=== PATIENT | female | born 1955 | race American Indian/Alaskan Native ===

== ENCOUNTER 2022-04-05 06:54 | Emergency (ER) | payer MEDICARE, SELFPAY ==
[2022-04-05 07:15] VITALS: BP 187/108; PULSE 101; RESP 20; TEMP 36.6; O2SAT 97; BMI 29.9
--- NOTE | 2022-04-05 07:27 | ED.PSYCH ---
HPI - Psych General Time Seen by Provider: 07:28 Date Seen: 04/05/22 Chief Complaint: Unspecified Complaint, Adult Stated Complaint: Mental Health issues Time Seen by Provider: 04/05/22 07:27 Source: patient, RN notes reviewed and old records reviewed Mode of arrival: ambulatory Limitations: no limitations History of Present Illness HPI Narrative: Alba is a very pleasant 66-year-old female with history of depression who comes to the emergency room because ?she did not know where to go?. Alba lives at [facility] and last week there was an incident where the residence were angry with each other and there was some door slamming. Yesterday Alba had a meeting and received a letter that her behavior was not acceptable and she got a warning. She is not a victim. However, she was so angry about this that she did not know where to go or what to do and thus she came to the emergency room. She denies suicidal ideation/homicidal ideation and states that now that she is on Prozac she no longer thinks about suicide. She denies alcohol or drug use. She is wanting to talk to somebody. Alba does not have a counselor but does have a point of contact at the [facility], [facility], who she sees for free. Candice is an advanced social services director. They have a good rapport. Unfortunately, Candice is not available as she is on vacation right now. Alba denies any suicidal gestures including taking pills, cutting, alcohol use. Related Data Home Medications Medication Instructions Recorded Confirmed fluoxetine 20 mg tablet mg 04/05/22 lisinopril 20 mg tablet mg 04/05/22 Allergies Allergy/AdvReac Type Severity Reaction Status Date / Time No Known Drug Allergies Allergy Verified 04/05/22 07:19 Review of Systems Narrative: No recent illnesses. No hallucinations. [facility] Medical History Anxiety Depression HTN (hypertension) Personality disorder PTSD (post-traumatic stress disorder) Social History Smoking Status: Never smoker Do you use any of these nicotine containing products: None How often do you have a drink containing alcohol: never AUDIT-C Alcohol total score: 0 Non-prescribed substance use: denies use Exam Narrative: Exam Narrative: Patient is alert and oriented. Nontoxic in appearance. Makes good eye contact. Appropriate speech. Cooperative. Heart with regular rate and rhythm and lungs are clear. Moving all extremities. Const: Vital Signs, click to edit/add: Vital Signs - 24 hr 04/05/22 07:15 Temperature 97.8 F Pulse Rate [Left P ulse Oximeter] 101 H Respiratory Rate 20 Blood Pressure [Le ft Upper Arm] 187/108 H Pulse Oximetry 97 Course Course Hospital Course: At this time patient is nontoxic in appearance, is not suicidal nor under the influence of chemicals. Alba will talk to our [employer] news broadcaster. Perhaps that person can help provide Alba with some self taught calming exercises. Vital Signs Vital signs: Initial Vital Signs Temperature 97.8 F 04/05/22 07:15 Temperature Source Temporal Artery Scan 04/05/22 07:15 Pulse Rate 101 H 04/05/22 07:15 Respiratory Rate 20 04/05/22 07:15 Blood Pressure 187/108 H 04/05/22 07:15 Blood Pressure Mean 134 04/05/22 07:15 Blood Pressure Position Sitting 04/05/22 07:15 Pulse Oximetry 97 04/05/22 07:15 Vital Signs Temperature 97.8 F 04/05/22 07:15 Pulse Rate 101 H 04/05/22 07:15 Respiratory Rate 20 04/05/22 07:15 Blood Pressure 187/108 H 04/05/22 07:15 Pulse Oximetry 97 04/05/22 07:15 Temperature 97.8 F 04/05/22 07:15 Pulse Rate 101 H 04/05/22 07:15 Respiratory Rate 20 04/05/22 07:15 Blood Pressure 187/108 H 04/05/22 07:15 Pulse Oximetry 97 04/05/22 07:15 MDM - Psych MDM Narrative Medical decision making narrative: 1. Emotional dysregulation-patient is clearly upset at the consequences of the outbursts from last week. She is not suicida/homicidal l and I do not believe is at risk for self-harm. We had scheduled patient for mental health assessment, but patient walked out without having done this. She is not on a hold at this time. 2. Disposition-prior to her departure I did encourage her to follow up with her mental health case briefer at [facility]. Medical Records Attestation: I reviewed the patient's medical records. Discharge Plan Discharge Clinical Impression: Emotional dysregulation Patient Disposition: Home, Self-Care Condition: Improved Additional Instructions: Left without talking to deck. Patient not on a hold. Prescriptions: No Action lisinopril 20 mg tablet Label Comments: TAKE 1 TABLET BY MOUTH ONCE DAILY fluoxetine 20 mg tablet Label Comments: Take 1 tablet by mouth once daily Stand Alone Forms: [employer] Info Instructions
--- NOTE | 2022-04-05 08:17 | PC.NURSE ---
pt got up and left her room without telling staff, aware
== END 2022-04-05 08:17 | disposition home or self-care (01) ==
LOC: ED 07:55
PROVIDERS: Emergency Provider Family Medicine
DX: F34.81 Disruptive mood dysregulation disorder (principal)
CPT/HCPCS: 99282; 99283

== ENCOUNTER 2022-08-08 10:02 | Inpatient (IN) | payer MEDICARE, SELFPAY ==
[2022-08-08] VITALS (30 sets, daily range): BP systolic 141–200; BP diastolic 74–106; PULSE 65–95; RESP 16–22; TEMP 35.8–36.9; O2SAT 94–97; BMI 33.2; BMI 31.4
--- NOTE | 2022-08-08 | CRLHL7_ITS ---
For Patients: As a result of the Cures Act, medical imaging exams and procedure reports are released immediately into your electronic medical record. You may view this report before your referring provider. If you have questions, please contact your health care provider. INDICATION: Dizziness. TECHNIQUE: Sagittal T1, axial FLAIR, T2, diffusion weighted and susceptibility weighted images of the brain. [id number] magnetic resonance angiography of the intracranial false pass of [place] arteries. COMPARISON: CT brain dated 08/07/2022. FINDINGS: MRI brain: The there is a focus of diffusion restriction within with matched FLAIR/T2 signal hyperintensity within the left karine siena bounded by the midline and is consistent with acute to early subacute ischemic infarction put at no evidence of hemorrhage or mass effect. This and small chronic infarcts in the right cerebellar hemisphere also noted at moderate chronic small vessel ischemic changes within supratentorial white matter. Ventricles and subarachnoid spaces are mildly prominent due to mild volume loss. MRA false pass of [place]: The basilar artery is widely patent. There is mild stenosis of the supraclinoid right internal carotid. There is moderate stenosis of the proximal left posterior cerebral artery. Hypoplastic right A-1 segment. The bilateral anterior and bilateral middle cerebral arteries are otherwise unremarkable. IMPRESSION: 1. Ischemic infarction within the left karine siena (acute to early subacute) without hemorrhage or mass effect. 2. Small chronic cerebellar infarcts and moderate chronic small vessel ischemic changes. Mild volume loss. 3. Widely patent basilar artery. Moderate stenosis proximal left posterior cerebral artery. Mild stenosis supraclinoid right ICA. Dictated by Hernandez Mart MD @ 08/08/2022 1:50:25 PM (Electronically Signed)
--- NOTE | 2022-08-08 10:25 | CRLHL7_ITS ---
For Patients: As a result of the Cures Act, medical imaging exams and procedure reports are released immediately into your electronic medical record. You may view this report before your referring provider. If you have questions, please contact your health care provider. INDICATION: Dizziness. TECHNIQUE: Sagittal T1, axial FLAIR, T2, diffusion weighted and susceptibility weighted images of the brain. [id number] magnetic resonance angiography of the intracranial [place] of [place] arteries. COMPARISON: CT brain dated 08/07/2022. FINDINGS: MRI brain: The there is a focus of diffusion restriction within with matched FLAIR/T2 signal hyperintensity within the left karine siena bounded by the midline and is consistent with acute to early subacute ischemic infarction put at no evidence of hemorrhage or mass effect. This and small chronic infarcts in the right cerebellar hemisphere also noted at moderate chronic small vessel ischemic changes within supratentorial white matter. Ventricles and subarachnoid spaces are mildly prominent due to mild volume loss. MRA [place] of [place]: The basilar artery is widely patent. There is mild stenosis of the supraclinoid right internal carotid. There is moderate stenosis of the proximal left posterior cerebral artery. Hypoplastic right A-1 segment. The bilateral anterior and bilateral middle cerebral arteries are otherwise unremarkable. IMPRESSION: 1. Ischemic infarction within the left karine siena (acute to early subacute) without hemorrhage or mass effect. 2. Small chronic cerebellar infarcts and moderate chronic small vessel ischemic changes. Mild volume loss. 3. Widely patent basilar artery. Moderate stenosis proximal left posterior cerebral artery. Mild stenosis supraclinoid right ICA. Dictated by Hernandez Mart MD @ 08/08/2022 1:49:49 PM (Electronically Signed)
--- NOTE | 2022-08-08 10:31 | ED.GENADULT ---
HPI - General Adult General Chief complaint: Dizziness/Vertigo Stated complaint: Dizzy Time Seen by Provider: 08/08/22 10:15 History of Present Illness HPI narrative: Patient is a 67 white female with a history of noting some cerebral atherosclerosis last night on the CT angiogram when she presented with dizziness. Patient was to start on Plavix and aspirin and has failed to start on either these as there medicines at [facility] and she has not picked that up yet. She reports today she feels much more dizzy. Was thought with Stroke Neurology that she might need an MRI of her head as well. She has had no chest pain no fevers no chills no systemic signs of illness no weakness in arms or legs. She just feels like she is ?on a ship? and listing side to side when she tries to walk or get up quickly. At rest she feels okay. She has noticed no focal neurologic change no thinking disability no facial asymmetry. Related Data Home Medications Medication Instructions Recorded Confirmed fluoxetine 20 mg tablet 20 mg PO DAILY 04/05/22 08/08/22 atorvastatin 20 mg tablet 20 mg PO QPM 08/07/22 08/08/22 lisinopril 40 mg tablet 40 mg PO DAILY 08/08/22 08/08/22 Previous Rx's Medication Instructions Recorded amlodipine 2.5 mg tablet 2.5 mg PO DAILY #30 tabs 08/07/22 aspirin 81 mg tablet,delayed 81 mg PO DAILY #30 tabs 08/07/22 release clopidogrel 75 mg tablet (Plavix) 75 mg PO DAILY #30 tabs 08/07/22 Allergies Allergy/AdvReac Type Severity Reaction Status Date / Time No Known Drug Allergies Allergy Verified 08/08/22 10:12 Review of Systems Status of ROS: Reports: 6 or more systems reviewed and unremarkable except as noted in History and below [facility] Medical History Anxiety Depression HTN (hypertension) Personality disorder PTSD (post-traumatic stress disorder) Social History Smoking Status: Never smoker Do you use any of these nicotine containing products: None How often do you have a drink containing alcohol: never AUDIT-C Alcohol total score: 0 Non-prescribed substance use: denies use service: No Exam Narrative: Exam Narrative: Objective vital signs show elevated blood pressure 200/106 this will be repeated The patient has negative nystagmus no facial asymmetry neck is supple Chest is clear Heart rhythm without murmur Abdomen benign soft Extremities show good strength perfusion and no weakness noted in upper lower extremities she is able to give a firm hand grasp bilaterally as well as raise her legs off the bed. Const: Vital Signs, click to edit/add: Vital Signs - 24 hr 08/08/22 10:07 08/08/22 10:46 08/08/22 10:54 Temperature 96.5 F L Pulse Rate 66 Pulse Rate [Right Pulse Oximeter] 70 Respiratory Rate 18 Blood Pressure Blood Pressure [Ri ght Upper Arm] 200/106 H Pulse Oximetry 97 96 95 Oxygen Delivery Me thod Room Air 08/08/22 11:00 08/08/22 11:02 08/08/22 11:03 Temperature Pulse Rate 65 73 66 Pulse Rate [Right Pulse Oximeter] Respiratory Rate Blood Pressure 180/85 H Blood Pressure [Ri ght Upper Arm] Pulse Oximetry 95 96 95 Oxygen Delivery Me thod 08/08/22 11:15 08/08/22 11:30 08/08/22 11:32 Temperature Pulse Rate 67 76 69 Pulse Rate [Right Pulse Oximeter] Respiratory Rate Blood Pressure 186/87 H Blood Pressure [Ri ght Upper Arm] Pulse Oximetry 95 96 97 Oxygen Delivery Me thod 08/08/22 11:45 08/08/22 12:00 08/08/22 12:02 Temperature Pulse Rate 70 72 72 Pulse Rate [Right Pulse Oximeter] Respiratory Rate Blood Pressure 171/106 H Blood Pressure [Ri ght Upper Arm] Pulse Oximetry 97 96 96 Oxygen Delivery Me thod 08/08/22 12:17 08/08/22 12:32 08/08/22 14:17 Temperature Pulse Rate 73 Pulse Rate [Right Pulse Oximeter] 78 Respiratory Rate 22 Blood Pressure 173/78 H Blood Pressure [Ri ght Upper Arm] 190/94 H Pulse Oximetry 97 96 Oxygen Delivery Me thod Room Air Course Vital Signs Vital signs: Initial Vital Signs Temperature 96.5 F L 08/08/22 10:07 Temperature Source Temporal Artery Scan 08/08/22 10:07 Pulse Rate 70 08/08/22 10:07 Respiratory Rate 18 08/08/22 10:07 Blood Pressure 200/106 H 08/08/22 10:07 Blood Pressure Mean 137 08/08/22 10:07 Blood Pressure Position Sitting 08/08/22 10:07 Pulse Oximetry 97 08/08/22 10:07 Oxygen Delivery Method 08/08/22 10:07 Vital Signs Temperature 96.5 F L 08/08/22 10:07 Pulse Rate 70 08/08/22 10:07 Respiratory Rate 18 08/08/22 10:07 Blood Pressure 200/106 H 08/08/22 10:07 Pulse Oximetry 97 08/08/22 10:07 Oxygen Delivery Method 08/08/22 10:07 Temperature 96.5 F L 08/08/22 10:07 Pulse Rate 78 08/08/22 14:17 Respiratory Rate 22 08/08/22 14:17 Blood Pressure 190/94 H 08/08/22 14:17 Pulse Oximetry 96 08/08/22 14:17 Oxygen Delivery Method 08/08/22 14:17 Medical Decision Making MDM Narrative Medical decision making narrative: Patient is a 67-year-old female who is nondiabetic does not have by her report poorly controlled cholesterol but it has been elevated she is on atorvastatin, she does not smoke. She reports with increasing dizziness after an episode of hypertension and dizziness last yesterday she did have some transient left arm symptoms by Dr. Garza report. I think this point she needs an MRI MRA of her head neck, lab studies EKG disc disposition pending findings above. Addendum: The patient's EKG shows sinus rhythm no acute ST T wave changes, her MRI scan does show small pontine stroke in some old cerebellar stroke. The pontine stroke is acute to subacute. Discussed with hospitalist who agrees to admit, cardiac monitoring, echo, stroke workup. Likely need discussion with Stroke Neurology about medications on going. Patient was comfortable plan at this time. Lab Data Labs: Lab Results 08/08/22 08/08/22 Range/Units 10:50 10:50 WBC 8.64 (4.50-11.00) K/uL RBC 5.14 (4.00-5.20) m/uL Hgb 14.9 (12.0-16.0) gm/dL Hct 44.6 (33.0-51.0) % MCV 87 (80-100) fL MCH 29 (26-34) pg MCHC 33 (32-36) gm/dL RDW Coeff of Sara 12.2 (11.5-15.5) % Plt Count 358 (140-440) K/uL Neut % (Auto) 68.5 (42.0-72.0) % Lymph % (Auto) 24.5 (20-44) % [place] % (Auto) 4.9 (0.0-11.0) % Eos % (Auto) 1.6 (0.0-7.0) % Baso % (Auto) 0.3 (0.0-3.0) % Neut # (Auto) 5.91 (1.7-7.0) K/uL Lymph # (Auto) 2.12 (0.90-2.90) K/uL [place] # (Auto) 0.40 (0.00-0.90) K/UL Eos # (Auto) 0.14 (0.00-0.50) K/uL Baso # (Auto) 0.03 (0.00-0.30) K/uL Sodium 140 (135-149) mmol/L Potassium 3.9 (3.6-5.1) mmol/L Chloride 108 (96-114) mmol/L Carbon Dioxide 25 (20-32) mmol/L BUN 13 (7-30) mg/dL Creatinine 0.7 (0.5-1.5) mg/dL Estimated Creat Clear 40.29 Estimated GFR 96 ml/min Glucose 159 H (60-115) mg/dL Calcium 9.4 (8.4-10.6) mg/dL Discharge Plan Discharge Clinical Impression: Dizziness Prescriptions: No Action fluoxetine 20 mg tablet 20 mg PO DAILY Label Comments: Take 1 tablet by mouth once daily atorvastatin 20 mg tablet 20 mg PO QPM amlodipine 2.5 mg tablet 2.5 mg PO DAILY Qty: 30 0RF clopidogrel [Plavix] 75 mg tablet 75 mg PO DAILY Qty: 30 0RF aspirin 81 mg tablet,delayed release (DR/EC) 81 mg PO DAILY Qty: 30 0RF lisinopril 40 mg tablet 40 mg PO DAILY Follow Up/Referrals: Provider,Not a Local [Primary Care Provider] -
[2022-08-08] MEDS: 0.9 % SODIUM CHLORIDE 1000 ml 1,000 ML 6000 ML IV (10:50)
[2022-08-08 10:58] LABS: Basophils Absolute Auto 0.03 K/uL (0.00-0.30); Basophils Percent Auto 0.3 % (0.0-3.0); Eosinophils Absolute Auto 0.14 K/uL (0.00-0.50); Eosinophils Percent Auto 1.6 % (0.0-7.0); Hematocrit 44.6 % (33.0-51.0); Hemoglobin* 14.9 gm/dL (12.0-16.0); Immature Granulocytes Abs Auto 0.02 K/uL (0.00-0.30); Immature Granulocytes Pct Auto 0.2 %; Lymphocytes Absolute Auto 2.12 K/uL (0.90-2.90); Lymphocytes Percent Auto 24.5 % (20-44); Mean Corpuscular HGB Conc 33 gm/dL (32-36); Mean Corpuscular Hemoglobin 29 pg (26-34); Mean Corpuscular Volume 87 fL (80-100); Monocytes Percent Auto 4.9 % (0.0-11.0); Neutrophils Absolute Auto 5.91 K/uL (1.7-7.0); Neutrophils Percent Auto 68.5 % (42.0-72.0); Platelet Count* 358 K/uL (140-440); RDW Coefficient of Variation % 12.2 % (11.5-15.5); Red Blood Count 5.14 m/uL (4.00-5.20); White Blood Count* 8.64 K/uL (4.50-11.00)
[2022-08-08 11:12] LABS: Chloride* 108 mmol/L (96-114); Potassium* 3.9 mmol/L (3.6-5.1); Sodium* 140 mmol/L (135-149)
[2022-08-08 11:15] LABS: Blood Urea Nitrogen* 13 mg/dL (7-30); Carbon Dioxide* 25 mmol/L (20-32); Creatinine* 0.7 mg/dL (0.5-1.5); Est. Creatinine Clearance* 40.29; Estimated Glomerular Filt Rate 96 ml/min
[2022-08-08 11:16] LABS: Calcium* 9.4 mg/dL (8.4-10.6); Glucose* 159 mg/dL (60-115)
[2022-08-08 11:17] LABS: Slide Review Reflex No
[2022-08-08] MEDS: LORazepam 2 MG/ML inj 1 MG IVP (11:25)
[2022-08-08] MEDS: ASPIRIN 81 MG TAB.CHEW 324 MG PO (11:27)
[2022-08-08] MEDS: CLOPIDOGREL 75 MG TABLET PO (11:27)
[2022-08-08] MEDS: AMLODIPINE 5 MG TABLET PO (11:36)
--- NOTE | 2022-08-08 12:41 | ED.NURSE ---
continues to feel off balanced with ambulation. needed assistance with walking. stumbled.
--- NOTE | 2022-08-08 14:07 | ED.NURSE ---
maryanne vazquez rn aware of likely to admit status.
--- NOTE | 2022-08-08 14:28 | P.IMHP_ITS ---
Hospitalist- H&P: HPI History of Present Illness Date Seen: 08/08/22 Chief complaint: Dizzy Narrative: Alba Cha is a 67 year old female with past medical history of HTN, HLD, depression presenting for evaluation of stroke. The patient was seen in the ED yesterday evening for evaluation of headache and dizziness. She underwent CT/CTA head and neck. She was discharged with plans to start aspirin and plavix. Today she woke up with slurred speech and dysarthria. She also had headache. She had dizziness. She denied facial droop, SOB, cp, nausea, vomiting, and abdominal pain. She presnted to ED where MRI/MRA Brain which showed Ischemic infarction within the left karine siena (acute to early subacute) without hemorrhage or mass effect. Small chronic cerebellar infarcts and moderate chronic small vessel ischemic changes. Mild volume loss.Widely patent basilar artery. Moderate stenosis proximal left posterior cerebral artery. Mild stenosis supraclinoid right ICA. She was started on aspirin and admitted for further evaluation. MRI brain: The there is a focus of diffusion restriction within with matched FLAIR/T2 signal hyperintensity within the left karine siena bounded by the midline and is consistent with acute to early subacute ischemic infarction put at no evidence of hemorrhage or mass effect. This and small chronic infarcts in the right cerebellar hemisphere also noted at moderate chronic small vessel ischemic changes within supratentorial white matter. Ventricles and subarachnoid spaces are mildly prominent due to mild volume loss. MRA [place] of [place]: The basilar artery is widely patent. There is mild stenosis of the supraclinoid right internal carotid. There is moderate stenosis of the proximal left posterior cerebral artery. Hypoplastic right A-1 segment. The bilateral anterior and bilateral middle cerebral arteries are otherwise unremarkable. IMPRESSION: 1. Ischemic infarction within the left karine siena (acute to early subacute) without hemorrhage or mass effect. 2. Small chronic cerebellar infarcts and moderate chronic small vessel ischemic changes. Mild volume loss. 3. Widely patent basilar artery. Moderate stenosis proximal left posterior cerebral artery. Mild stenosis supraclinoid right ICA. Medical Hx Surgical History Surgical History Surgery Date Site/Laterality Comments DENTAL ORAL SURGERY ADULT/PEDS 22 yo ? wisdom teeth? DENTAL ORAL SURGERY ADULT/PEDS 2010 ? dental extractions, 12 teeth? Medical History Medical History Medical History Date Comments Kidney stones infrequent ? Gastric ulcer no longer symptoms Varicella uncomplicated childhood ? Family History Patient is adopted Family History Medical History Relation Name Comments Alcohol/Drug Abuse Mother ? ? Liver Disease Mother ? cirrhosis Review of Systems Status of ROS: Reports: 10 or more systems reviewed and unremarkable except as noted in History and below PFSH [facility] Medical History Anxiety Depression HTN (hypertension) Personality disorder PTSD (post-traumatic stress disorder) Social History Highest level of school completed/degree received: Associate degree: occupational, technical, vocational program Smoking Status: Never smoker Do you use any of these nicotine containing products: None Second hand tobacco smoke exposure: No How often do you have a drink containing alcohol: never How often do you have six or more drinks on one occasion: Never AUDIT-C Alcohol total score: 0 Non-prescribed substance use: denies use Caffeine: Yes (2 cups a day) service: No Meds Home Medications and Allergies Home Medications Medication Instructions Recorded Confirmed Type fluoxetine 20 mg tablet 20 mg PO DAILY 04/05/22 08/08/22 History atorvastatin 20 mg tablet 20 mg PO DAILY 08/07/22 08/08/22 History betamethasone, augmented 0.05 % 1 applic topical BID PRN 08/08/22 08/08/22 History topical cream chlorthalidone 25 mg tablet 12.5 mg PO DAILY 08/08/22 08/08/22 History clobetasol 0.05 % topical ointment 1 applic topical HS PRN 08/08/22 08/08/22 History lisinopril 40 mg tablet 40 mg PO DAILY 08/08/22 08/08/22 History Allergies Allergy/AdvReac Type Severity Reaction Status Date / Time No Known Drug Allergies Allergy Verified 08/08/22 10:12 Exam Narrative: Exam Narrative: Gen: no acute distress HEENT: NCAT EOMI mmm Neck: Supple CV: RRR normal s1 s2 Lungs: CTAB Abd: Soft,nt, nd Neuro: Alert, oriented, UE/LE strength equal and symmetric; sensation to light touch intact. no facial droop, speech is slightly slurred Psych: appropriate affect MSK: age appropriate muscle mass Skin; Warm, dry no rash on face Const: Vital Signs, click to edit/add: Vital Signs - 24 hr 08/08/22 10:07 08/08/22 10:46 08/08/22 10:54 Temperature 96.5 F L Pulse Rate 66 Pulse Rate [Right Pulse Oximeter] 70 Respiratory Rate 18 Blood Pressure Blood Pressure [Ri ght Upper Arm] 200/106 H Pulse Oximetry 97 96 95 Oxygen Delivery Me thod Room Air 08/08/22 11:00 08/08/22 11:02 08/08/22 11:03 Temperature Pulse Rate 65 73 66 Pulse Rate [Right Pulse Oximeter] Respiratory Rate Blood Pressure 180/85 H Blood Pressure [Ri ght Upper Arm] Pulse Oximetry 95 96 95 Oxygen Delivery Me thod 08/08/22 11:15 08/08/22 11:30 08/08/22 11:32 Temperature Pulse Rate 67 76 69 Pulse Rate [Right Pulse Oximeter] Respiratory Rate Blood Pressure 186/87 H Blood Pressure [Ri ght Upper Arm] Pulse Oximetry 95 96 97 Oxygen Delivery Me thod 08/08/22 11:45 08/08/22 12:00 08/08/22 12:02 Temperature Pulse Rate 70 72 72 Pulse Rate [Right Pulse Oximeter] Respiratory Rate Blood Pressure 171/106 H Blood Pressure [Ri ght Upper Arm] Pulse Oximetry 97 96 96 Oxygen Delivery Me thod 08/08/22 12:17 08/08/22 12:32 08/08/22 14:17 Temperature Pulse Rate 73 Pulse Rate [Right Pulse Oximeter] 78 Respiratory Rate 22 Blood Pressure 173/78 H Blood Pressure [Ri ght Upper Arm] 190/94 H Pulse Oximetry 97 96 Oxygen Delivery Me thod Room Air Hospitalist - H&P: Result Labs Labs: Short CBC 08/08/22 Range/Units 10:50 WBC 8.64 (4.50-11.00) K/uL Hgb 14.9 (12.0-16.0) gm/dL Hct 44.6 (33.0-51.0) % Plt Count 358 (140-440) K/uL BMP 08/08/22 10:50 Sodium 140 Potassium 3.9 Chloride 108 Carbon Dioxide 25 BUN 13 Creatinine 0.7 Glucose 159 H Calcium 9.4 Assessment and Plan Assessment and plan (1) Stroke: Status: Acute (2) Essential hypertension: Status: Acute (3) HLD (hyperlipidemia): Status: Acute (4) Depression: Status: Acute Plan Alba Cha is a 67 year old female with past medical history of HTN, HLD, depression presenting for evaluation of stroke. The patient was seen in the ED yesterday evening for evaluation of headache and dizziness. She underwent CT/CTA head and neck. She was discharged with plans to start aspirin and plavix. Today she woke up with slurred speech and dysarthria. She also had headache. She had dizziness. She denied facial droop, SOB, cp, nausea, vomiting, and abdominal pain. She presnted to ED where MRI/MRA Brain which showed Ischemic infarction within the left karine siena (acute to early subacute) without hemorrhage or mass effect. Small chronic cerebellar infarcts and moderate chronic small vessel ischemic changes. Mild volume loss.Widely patent basilar artery. Moderate stenosis proximal left posterior cerebral artery. Mild stenosis supraclinoid right ICA. She was started on aspirin and admitted for further evaluation. Assessment 1. Acute/subacute CVA of left karine siena; likely ischemic vs thromboembolic 2. Hx of HTN 3. Hx of HLD 4. Hx of Depression 5. Hyperglycemia Plan -admit to inpatient -PT, OT, BUNG DROPPER consults -tele -neuro check -check a1c -check lipid panel -permissive HTN -Echo -continue statin -hold antihypertensives -aspirin given in ED (previously was to be started on aspirin and plavix) Code-Full DVT ppx-SCD
[2022-08-08 15:08] LABS: SARS PCR* Negative SARS-CoV-2 (Negative)
--- NOTE | 2022-08-08 18:38 | PC.NURSE ---
admission. pt is alert. she said she feeling like she is walking on and rocking ship. she is dizzy. she is up with 1 assist walker and GB. she said that the walker helps alot. SL is patent, she can safely drink and eat. she can use a call light appropriately
[2022-08-08] MEDS: SODIUM CHLORIDE 0.9 % (FLUSH) 10 ML SYRINGE 5 ML IVF (20:51)
[2022-08-09 03:00] VITALS: BP 169/87; PULSE 75; RESP 18; TEMP 36.6; O2SAT 95
[2022-08-09 06:20] LABS: Basophils Absolute Auto 0.02 K/uL (0.00-0.30); Basophils Percent Auto 0.2 % (0.0-3.0); Eosinophils Absolute Auto 0.25 K/uL (0.00-0.50); Eosinophils Percent Auto 2.8 % (0.0-7.0); Hematocrit 44.8 % (33.0-51.0); Hemoglobin* 15.2 gm/dL (12.0-16.0); Immature Granulocytes Abs Auto 0.02 K/uL (0.00-0.30); Immature Granulocytes Pct Auto 0.2 %; Lymphocytes Absolute Auto 2.65 K/uL (0.90-2.90); Lymphocytes Percent Auto 29.7 % (20-44); Mean Corpuscular HGB Conc 34 gm/dL (32-36); Mean Corpuscular Hemoglobin 29 pg (26-34); Mean Corpuscular Volume 87 fL (80-100); Monocytes Percent Auto 5.7 % (0.0-11.0); Neutrophils Absolute Auto 5.46 K/uL (1.7-7.0); Neutrophils Percent Auto 61.4 % (42.0-72.0); Platelet Count* 379 K/uL (140-440); RDW Coefficient of Variation % 12.1 % (11.5-15.5); Red Blood Count 5.18 m/uL (4.00-5.20); White Blood Count* 8.91 K/uL (4.50-11.00)
[2022-08-09 06:24] LABS: Slide Review Reflex No
[2022-08-09 06:35] LABS: Hemoglobin A1C* 6.68 % (0-5.6)
[2022-08-09 06:37] LABS: Chloride* 110 mmol/L (96-114); Potassium* 4.2 mmol/L (3.6-5.1); Sodium* 142 mmol/L (135-149)
[2022-08-09 06:39] LABS: Carbon Dioxide* 24 mmol/L (20-32); Cholesterol* 209 mg/dL (90-199); Creatinine* 0.7 mg/dL (0.5-1.5); Est. Creatinine Clearance* 40.29; Estimated Glomerular Filt Rate 96 ml/min
[2022-08-09 06:40] LABS: Blood Urea Nitrogen* 12 mg/dL (7-30); Calcium* 9.4 mg/dL (8.4-10.6); Glucose* 138 mg/dL (60-115); HDL Cholesterol* 39 mg/dL (>=50); LDL Cholesterol Calculated 151 mg/dL (<100); Triglycerides* 94 mg/dL (40-149)
--- NOTE | 2022-08-09 06:44 | PC.NURSE ---
END OF SHIFT NOTE: PT CONFUSED; ALERT TO SELF.?COOPERATIVE WITH CARES. PT DENIES CP, SOB, N/V. PT COMPLAINS OF FRONTAL HEAD, BACK AND ANKLE PAIN. PAIN RELIEVER ADMINISTERED AND LIDOCAINE PATCH APPLIED TO LEFT LOWER BACK. HEAD LAC TO FRONTAL LEFT HEAD THAT WAS GLUE IN ED. PT HAS BEEN INCONTINENT OF URINE THIS SHIFT. ATTEMPT TO AMBULATE PT WAS UNSUCCESSFUL. VSS ON RA; AFEBRILE. BED ALARM ON AND CALL LIGHT WITHIN PT?S REACH.?
--- NOTE | 2022-08-09 06:47 | PC.NURSE ---
END OF SHIFT NOTE: PT A&Ox3, PLEASANT AND COOPERATIVE. DENIES CP, SOB, N/V. AMBULATES WITH WALKER, GB, A1. VSS ON RA; AFEBRILE. PT DENIES FEELING DIZZY OR LIGHTHEADED. BED ALARM ON AND CALL LIGHT WITHIN PT?S REACH.?
[2022-08-09 07:00] VITALS: BP 190/95; BP 212/113; PULSE 76; RESP 18; TEMP 36.6; O2SAT 98
[2022-08-09 07:05] VITALS: PULSE 69
[2022-08-09] MEDS: FLUOXETINE HCL 20 MG CAPSULE PO (09:40)
[2022-08-09] MEDS: ATORVASTATIN 10 MG TABLET 20 MG PO (09:40)
[2022-08-09] MEDS: AMLODIPINE 5 MG TABLET 2.5 MG PO (10:53)
[2022-08-09] MEDS: lisinopriL 20 MG TABLET 40 MG PO (10:54)
[2022-08-09] MEDS: SODIUM CHLORIDE 0.9 % (FLUSH) 10 ML SYRINGE 5 ML IVF (10:54)
[2022-08-09 11:00] VITALS: BP 173/118; PULSE 105; RESP 18; TEMP 36.8; O2SAT 97
[2022-08-09] MEDS: PERFLUTREN LIPID MICROSPHERES 2 ML VIAL IV (12:55)
[2022-08-09 15:00] VITALS: BP 198/90; PULSE 95; RESP 18; O2SAT 95
[2022-08-09 16:00] VITALS: BP 198/90; PULSE 95; RESP 18
--- NOTE | 2022-08-09 17:02 | PC.NURSE ---
Nursing Care Hours: [id number] Pt this shift calm and cooperative, alert and oriented, equal extremities strength. SB assist with walker and gait belt. Taking food, fluids, and PO medications without concern. IV patent, DC'd at discharge. Moderate amount of bleeding from IV site after blood pressure taken, pt cleaned up, pressure applied, arm raised, and bandage changed. No issue at discharge. Wheeled out to front door, admissions assisted with calling a cab.
--- NOTE | 2022-08-10 16:29 | P.DS_ITS ---
DS: Providers Provider Time Seen by Provider: 09:00 Date Seen: 08/09/22 Date of admission: 08/08/22 15:39 Primary care physician: Not a Local Provider Admitting Clinician: Haroon Manzo MD Consults: 08/08/22 15:39 Consult to Physical Therapy [CONS] Routine Comment: Reason(s) for PT Consult:: Evaluate and Treat Any Restrictions?:: No Restrictions 08/08/22 15:40 Consult to Occupational Therapy [CONS] Routine Comment: Reason(s) for OT Consult:: Evaluate and Treat Any Restrictions?:: No Restrictions 08/08/22 16:46 Consult to Speech Therapy [CONS] Routine Comment: Reason(s) for Speech Consult:: Speaking Difficulty Attending Physician on discharge: Adryan Ybarra MD Date of Discharge: 08/09/22 DS: Diagnosis Discharge Diagnosis (1) Stroke: Status: Acute Problem details: MRI brain, 08/08/2022: Acute ischemic infarction left karine-siena; small chronic cerebellar infarctions. (2) Arm paresthesia, right: Status: Acute (3) Cerebral atherosclerosis: Status: Acute Problem details: MRI brain, 08/08/2022: moderate stenosis proximal left posterior cerebellar artery, mild stenosis supraclinoid right ICA. (4) Essential hypertension: Status: Acute (5) HLD (hyperlipidemia): Status: Acute (6) Depression: Status: Acute (7) Dizziness: Status: Acute DS: Summary Hospital Course Hospital Course: Alba Cha is a 67 year old female with past medical history of HTN, HLD, depression presenting for evaluation of stroke. The patient was seen in the ED yesterday evening for evaluation of headache and dizziness. She underwent CT/CTA head and neck. She was discharged with plans to start aspirin and plavix. Today she woke up with slurred speech and dysarthria. She also had headache. She had dizziness. She denied facial droop, SOB, cp, nausea, vomiting, and abdominal pain. She presnted to ED where MRI/MRA Brain which showed?Ischemic infarction within the left karine siena (acute to early subacute) without hemorrhage or mass effect. Small chronic cerebellar infarcts and moderate chronic small vessel ischemic changes. Mild volume loss.Widely patent basilar artery. Moderate stenosis proximal left posterior cerebral artery. Mild stenosis supraclinoid right ICA. She was started on aspirin and admitted for further evaluation. In hospital we stopped her aspirin. We initiated clopidogrel. We increased her statin medication regimen. We held her antihypertensive medications and loud loud for permissive hypertension. All of her symptoms have virtually resolved prior to discharge. Follow up as specified below. Status at Discharge Functional status at discharge: uses cane/walker Overall status at discharge: patient is progressing back to baseline Time Spent with Patient Time attestation: Total time spent providing and/or coordinating discharge services: Time spent: Greater than 30 minutes Exam Narrative: Exam Narrative: Gen: no acute distress HEENT: NCAT EOMI mmm Neck: Supple CV: RRR normal s1 s2 Lungs: CTAB Abd: Soft,nt, nd Neuro: Alert, oriented, UE/LE strength equal and symmetric; sensation to light touch intact. no facial droop, speech is slightly slurred Psych: appropriate affect MSK: age appropriate muscle mass Skin; Warm, dry no rash on face Const: Documenting provider has reviewed patient's vital signs: yes Discharge Plan Discharge Disposition: Home, Self-Care Date of Admission: 08/08/22 15:39 Attending Provider on Discharge: Adryan Ybarra Primary Care Provider: Provider,Not a Local Condition: Improved Anticipated Discharge Date/Time: 08/09/22 14:00 Discharge Medications: New atorvastatin 40 mg tablet 40 mg PO DAILY Qty: 30 2RF Continued fluoxetine 20 mg tablet 20 mg PO DAILY amlodipine 2.5 mg tablet 2.5 mg PO DAILY Qty: 30 0RF clopidogrel [Plavix] 75 mg tablet 75 mg PO DAILY Qty: 30 0RF lisinopril 40 mg tablet 40 mg PO DAILY betamethasone, augmented 0.05 % cream 1 applic topical BID PRN Rx Instructions: hands and behind ears for psoriasis chlorthalidone 25 mg tablet 12.5 mg PO DAILY clobetasol 0.05 % ointment 1 applic topical HS PRN Rx Instructions: to vagina 2-3 nights a week Discontinued atorvastatin 20 mg tablet 20 mg PO DAILY aspirin 81 mg tablet,delayed release (DR/EC) 81 mg PO DAILY Qty: 30 0RF Discharge Orders: Discharge Order (Routine); Ordered 08/09/22 Ordered By: Adryan Ybarra Patient Education: Atorvastatin (By mouth), Carotid Artery Disease (GEN), Brain Stem Infarction (GEN), Stroke (GEN) Additional Instructions: 1. Follow-up with primary home health care case manager (PCP) in 5-10 days, optimize efforts to reduce risk of future stroke; 2. Please make appointment for patient to see neurologist in in 1-3 months, the sooner the better; 3. Outpatient Physical Therapy and Occupational Therapy assessment and treatment, please; 4. Consider sleep study referral from PCP, given increased risk for Obstructive Sleep Apnea; 5. Outpatient Nutrition/Automatic Pinsetter Adjuster consultation; 6. Work toward safe, increased physical activity efforts during the day; Activity Level: No Restrictions, Activity as Tolerated and Use Walker Discharge Diet: Heart Healthy (2 gm sodium, low fat) Follow Up Appointments: [facility] [Outside] - 08/13/22 1:50 pm ([facility] with Dr. Hawkins ([phone])) Provider,Not a Local [Primary Care Provider] - Forms: MDLIVE Info Instructions
== END 2022-08-09 15:15 | disposition home or self-care (01) | DRG 66 ==
LOC: ED 10:29 → MEDSURG 15:31
PROVIDERS: Admitting Provider Hospitalist; Emergency Provider Family Medicine; Visit Provider Hospitalist
DX: I63.533 Cerebral infarction due to unspecified occlusion or stenosis of bilateral posterior cerebral arteries (principal); R42 Dizziness and giddiness; I10 Essential (primary) hypertension; I67.2 Cerebral atherosclerosis; R47.81 Slurred speech; I69.322 Dysarthria following cerebral infarction; R51.9 Headache, unspecified; F41.9 Anxiety disorder, unspecified; F32.A Depression, unspecified; F43.10 Post-traumatic stress disorder, unspecified; F60.9 Personality disorder, unspecified; E78.5 Hyperlipidemia, unspecified; I34.0 Nonrheumatic mitral (valve) insufficiency
CPT/HCPCS: 36415; 70450; 70496; 70498; 70544; 70551; 80048; 80061; 83036; 84484; 85025; 87635; 92523; 93005; 93306; 94761; 97116; 97161; 97165; 99285; A9270; J2060; J7030; Q9957; Q9967

== ENCOUNTER 2022-08-27 11:37 | Emergency (ER) | payer MEDICARE, SELFPAY ==
[2022-08-27 11:59] VITALS: BP 165/91; PULSE 88; RESP 18; TEMP 36.9; O2SAT 98; BMI 29.3
--- NOTE | 2022-08-27 12:21 | CRLHL7_ITS ---
For Patients: As a result of the Cures Act, medical imaging exams and procedure reports are released immediately into your electronic medical record. You may view this report before your referring provider. If you have questions, please contact your health care provider. Indication: Headache since the day prior, history of infarct Technique: Volumetric multidetector CT images of the head were obtained without the administration of low osmolar intravenous contrast. Comparison: CT head August 07, 2022 and MRI brain August 08, 2022 Findings: There is no intra-axial or extra-axial fluid collection. There is no mass effect or midline shift. There is age-related cortical atrophy with mild sulcal widening and ex vacuo dilatation of the lateral ventricles. There is encephalomalacia of the right greater than left cerebellar hemispheres consistent with stable remote lacunar changes. There is moderate chronic small vessel disease change within the subcortical and periventricular white matter. Previously seen infarct within the left karine siena is not well appreciated. The orbits and their contents are grossly within normal limits. The bony calvarium is grossly intact. The paranasal sinuses are clear. The mastoid air cells are well aerated. Impression: Stable age-related and chronic small-vessel disease changes of the brain without evidence of new acute intracranial abnormality. Sequela of previously seen infarct within the left karine siena is not well identified. Stable lacunar changes of the right greater than left cerebellar hemispheres. Please note that all CT scans at this facility use dose modulation, iterative reconstruction, and/or weight-based dosing when appropriate to reduce radiation dose to as low as reasonably achievable. Dictated by Lucho Sawyer MD @ 08/27/2022 1:44:38 PM (Electronically Signed)
--- NOTE | 2022-08-27 12:48 | ED_ITS ---
HPI - Headache General Date Seen: 08/27/22 Chief Complaint: Headache/Migraine Stated Complaint: Headache Time Seen by Provider: 08/27/22 12:12 Source: patient and family Mode of arrival: ambulatory Limitations: no limitations History of Present Illness HPI Narrative: Patient is a 67-year-old female who presents ambulatory to the emergency room with the neck pain and headache, she tells me this came on after she had intercourse yesterday, was hanging then her head off the bed, she noted that she had a hard time lifting her head, this morning when she woke up, and she had a bilateral headache. Set after the intercourse she really have a headache, it was not sudden that came on, was more today. This however worried her approximately 3 weeks ago she had a stroke in her siena, she was placed on anticoagulants for that. Denies any numbness tingling weakness in her hands or feet, there is no new or worsening neurologic symptoms of anything she is improving she tells me, she is to use a walker now she is using a cane. Denies any photophobia, nausea vomiting, balance issues, speech issues, MD elicited complaint: headache Treatments prior to arrival: none Related Data Home Medications Medication Instructions Recorded Confirmed fluoxetine 20 mg tablet 20 mg PO DAILY 04/05/22 08/27/22 betamethasone, augmented 0.05 % 1 applic topical BID PRN 08/08/22 08/08/22 topical cream chlorthalidone 25 mg tablet 12.5 mg PO DAILY 08/08/22 08/08/22 clobetasol 0.05 % topical ointment 1 applic topical HS PRN 08/08/22 08/08/22 lisinopril 40 mg tablet 40 mg PO DAILY 08/08/22 08/27/22 amlodipine 10 mg tablet 10 mg PO DAILY 08/27/22 08/27/22 atorvastatin 20 mg tablet 20 mg PO QPM 08/27/22 08/27/22 fluoxetine 20 mg capsule 20 mg PO DAILY 08/27/22 08/27/22 metformin 850 mg tablet 850 mg PO DAILY 08/27/22 08/27/22 spironolactone 25 mg tablet 25 mg PO QAM 08/27/22 08/27/22 Previous Rx's Medication Instructions Recorded amlodipine 2.5 mg tablet 2.5 mg PO DAILY #30 tabs 03/14/23 clopidogrel 75 mg tablet (Plavix) 75 mg PO DAILY #30 tabs 08/07/22 atorvastatin 40 mg tablet 40 mg PO DAILY #30 tabs 08/09/22 Allergies Allergy/AdvReac Type Severity Reaction Status Date / Time No Known Drug Allergies Allergy Verified 08/27/22 12:04 Review of Systems Status of ROS: Reports: 10 or more systems reviewed and unremarkable except as noted in History and below [facility] Medical History Anxiety ?F41.9 - Anxiety disorder, unspecified (ICD-10) Depression ?F32.A - Depression, unspecified (ICD-10) HTN (hypertension) ?I10 - Essential (primary) hypertension (ICD-10) Personality disorder ?F60.9 - Personality disorder, unspecified (ICD-10) PTSD (post-traumatic stress disorder) ?F43.10 - Post-traumatic stress disorder, unspecified (ICD-10) Social History Highest level of school completed/degree received: Associate degree: occupational, technical, vocational program Smoking Status: Never smoker Do you use any of these nicotine containing products: None Second hand tobacco smoke exposure: No How often do you have a drink containing alcohol: never How often do you have six or more drinks on one occasion: Never AUDIT-C Alcohol total score: 0 Non-prescribed substance use: denies use Caffeine: Yes (2 cups a day) service: No Exam Narrative: Exam Narrative: On examination in room 4 she is in no apparent distress she is pleasant and alert, speaking to me normally, her cranial nerves 3-12 are normal her TMs are normal, oropharynx is normal, her neck has good range of motion, carotid upstrokes are equal JVP is flat, chest is clear, heart sounds are normal, she moves all extremities independently and well, she has a lot a marker on her left index finger, that is because when she puts it on she tells me she tends to make a neil there. Coordination seems normal, hackett normal both distally and proximally, 5/5, bilaterally symmetrical, sensation is normal Const: Vital Signs, click to edit/add: Vital Signs - 24 hr 08/27/22 11:59 Temperature 98.5 F Pulse Rate [Right Pulse Oximeter] 88 Respiratory Rate 18 Blood Pressure [Ri ght Upper Arm] 165/91 H Pulse Oximetry 98 Oxygen Delivery Me thod Room Air Documenting provider has reviewed patient's vital signs: yes Course Course Hospital Course: I went back and discussed with patient she is improving here, I think use some Tylenol and some ice would be improvement, physical activity should be kept at a minimum, we do have the CTA and also MRA from a few days ago, that showed no evidence of an AVM or aneurysm all formation. Given this I think watching her blood pressure would be more important, and I would like to see her follow-up to have her blood pressure more aggressively reduced by Primary Care, we went over warning signs she will come back and be seen if these occur. Vital Signs Vital signs: Initial Vital Signs Temperature 98.5 F 08/27/22 11:59 Temperature Source Temporal Artery Scan 08/27/22 11:59 Pulse Rate 88 08/27/22 11:59 Respiratory Rate 18 08/27/22 11:59 Blood Pressure 165/91 H 08/27/22 11:59 Blood Pressure Mean 115 08/27/22 11:59 Blood Pressure Position Sitting 08/27/22 11:59 Pulse Oximetry 98 08/27/22 11:59 Oxygen Delivery Method Room Air 08/27/22 11:59 Vital Signs Temperature 98.5 F 08/27/22 11:59 Pulse Rate 88 08/27/22 11:59 Respiratory Rate 18 08/27/22 11:59 Blood Pressure 165/91 H 08/27/22 11:59 Pulse Oximetry 98 08/27/22 11:59 Oxygen Delivery Method Room Air 08/27/22 11:59 Temperature 98.5 F 08/27/22 11:59 Pulse Rate 88 08/27/22 11:59 Respiratory Rate 18 08/27/22 11:59 Blood Pressure 165/91 H 08/27/22 11:59 Pulse Oximetry 98 08/27/22 11:59 Oxygen Delivery Method Room Air 08/27/22 11:59 MDM - Headache MDM Narrative Medical decision making narrative: Life-threatening differential diagnosis include subarachnoid hemorrhage, meningitis, encephalitis, carbon monoxide poisoning, and intracerebral hemorrhage. Other differential diagnosis include but not limited to migraine, cluster headache, tension headache, IRRIGATION PUMP INSTALLER vasculitis, mass lesion, temporal arteritis, click acute closed angle glaucoma, septal and trigeminal neuralgia, sinusitis, closed head injury, and stroke Medical Records Attestation: I reviewed the patient's medical records. Lab Data Attestation: I reviewed the patient's lab results. Labs: Lab Results 08/27/22 Range/Units 12:33 Sodium 139 (135-149) mmol/L Potassium 4.0 (3.6-5.1) mmol/L Chloride 104 (96-114) mmol/L Carbon Dioxide 28 (20-32) mmol/L BUN 11 (7-30) mg/dL Creatinine 0.8 (0.5-1.5) mg/dL Estimated Creat Clear 40.29 Estimated GFR 82 ml/min Glucose 164 H (60-115) mg/dL Calcium 9.1 (8.4-10.6) mg/dL Imaging Data CT scan - head: Attestation: I have reviewed the pertinent imaging results. My impression: Nothing acute Radiologist's impression: Patient: JUSTINA ANDREW Facility:?[facility] Patient ID:?[id number] Site Patient ID:?[id number]. Site :?[id number] Study:?CT Head w/o Contrast-08/27/2022 12:51:55 PM Ordering Physician:Nathalia Anderson Final Report: Indication: Headache since the day prior, history of infarct Technique: Volumetric multidetector CT images of the head were obtained without the administration of low osmolar intravenous contrast. Comparison: CT head August 07, 2022 and MRI brain August 08, 2022 Findings: There is no intra-axial or extra-axial fluid collection. There is no mass effect or midline shift. There is age-related cortical atrophy with mild sulcal widening and ex vacuo dilatation of the lateral ventricles. There is encephalomalacia of the right greater than left cerebellar hemispheres consistent with stable remote lacunar changes. There is moderate chronic small vessel disease change within the subcortical and periventricular white matter. Previously seen infarct within the left karine siena is not well appreciated. The orbits and their contents are grossly within normal limits. The bony calvarium is grossly intact. The paranasal sinuses are clear. The mastoid air cells are well aerated. Impression: Stable age-related and chronic small-vessel disease changes of the brain without evidence of new acute intracranial abnormality. Sequela of previously seen infarct within the left karine siena is not well identified. Stable lacunar changes of the right greater than left cerebellar hemispheres. Please note that all CT scans at this facility use dose modulation, iterative reconstruction, and/or weight-based dosing when appropriate to reduce radiation dose to as low as reasonably achievable. Dictated by Lucho Sawyer MD @ 08/27/2022 1:44:38 PM (Electronic Signature) Discharge Plan Discharge Clinical Impression: Headache, Status post CVA Patient Disposition: Home, Self-Care Condition: Stable Instructions: Acute Headache (ED), Stroke (DC) Additional Instructions: Home rest reassuring CT, use of Tylenol for the discomfort, follow-up as needed, ice, Would suggest follow-up in the clinic to ensure that her blood pressures improvement. Prescriptions: No Action fluoxetine 20 mg tablet 20 mg PO DAILY amlodipine 2.5 mg tablet 2.5 mg PO DAILY Qty: 30 0RF clopidogrel [Plavix] 75 mg tablet 75 mg PO DAILY Qty: 30 0RF lisinopril 40 mg tablet 40 mg PO DAILY betamethasone, augmented 0.05 % cream 1 applic topical BID PRN Rx Instructions: hands and behind ears for psoriasis chlorthalidone 25 mg tablet 12.5 mg PO DAILY clobetasol 0.05 % ointment 1 applic topical HS PRN Rx Instructions: to vagina 2-3 nights a week atorvastatin 40 mg tablet 40 mg PO DAILY Qty: 30 2RF atorvastatin 20 mg tablet 20 mg PO QPM metformin 850 mg tablet 850 mg PO DAILY spironolactone 25 mg tablet 25 mg PO QAM amlodipine 10 mg tablet 10 mg PO DAILY fluoxetine 20 mg capsule 20 mg PO DAILY Follow Up/Referrals: Provider,Not a Local [Primary Care Provider] - Stand Alone Forms: Joox Info Instructions
[2022-08-27 12:58] LABS: Chloride* 104 mmol/L (96-114); Sodium* 139 mmol/L (135-149)
[2022-08-27 13:01] LABS: Blood Urea Nitrogen* 11 mg/dL (7-30); Calcium* 9.1 mg/dL (8.4-10.6); Carbon Dioxide* 28 mmol/L (20-32); Creatinine* 0.8 mg/dL (0.5-1.5); Est. Creatinine Clearance* 40.29; Estimated Glomerular Filt Rate 82 ml/min; Glucose* 164 mg/dL (60-115)
[2022-08-27 14:59] VITALS: BP 155/91
[2022-08-27 15:05] VITALS: BP 155/91
== END 2022-08-27 15:04 | disposition home or self-care (01) ==
PROVIDERS: Emergency Provider Family Medicine
DX: R51.9 Headache, unspecified (principal)
CPT/HCPCS: 36415; 70450; 80048; 99284